=== PATIENT | female | born 1960 | race African-American/Black ===

== ENCOUNTER 2020-05-07 11:39 | Inpatient (IN) | payer OTHER ==
[2020-05-02 13:50] VITALS: BMI 27.5
[2020-05-07] MEDS ORDERED: BUPIVACAINE LIPOSOME/PF (EXPAREL) 266 MG/20 ML VIAL ONE ×2 (12:10→12:13)
[2020-05-07] MEDS ORDERED: SODIUM CHLORIDE 0.9% P/F 10 ML VIAL IJ ONE (12:10)
[2020-05-07] MEDS ORDERED: MIDAZOLAM HCL 2 MG/2 ML SINGLE DOSE VIAL ONE (12:10)
[2020-05-07] MEDS ORDERED: VANCOMYCIN 1,000 MG VIAL (RESTRICTED TO ID ONLY) ONE (13:04)
[2020-05-07] MEDS ORDERED: BUPIVACAINE HCL/PF 0.5% (5MG/ML) 10 ML VIAL ONE (13:04)
[2020-05-07] MEDS ORDERED: TRANEXAMIC ACID 1000 MG/10 ML VIAL ONE ×2 (13:33→15:14)
[2020-05-07] MEDS ORDERED: PROPOFOL 20 ML ONE ×3 (13:39→15:14)
[2020-05-07] MEDS ORDERED: PROMETHAZINE HCL 25 MG/1 ML VIAL IVPUSH PRN (15:04)
[2020-05-07] MEDS ORDERED: LACTATED RINGERS SOLUTION 1,000 ML IV SCH ×2 (15:15→16:30)
[2020-05-07] MEDS ORDERED: BENZOIN/ALOE VERA/STORAX/TOLU 58 ML BOTTLE ONE (16:20)
[2020-05-07] MEDS ORDERED: MAGNESIUM HYDROX 2400MG/30ML ORAL SUSPENSION 30 ML CUP PO PRN (16:23)
[2020-05-07] MEDS ORDERED: MAG HYDROX/AL HYDROX/SIMETH 30 ML UNIT-DOSE CUP PO PRN (16:23)
[2020-05-07] MEDS: ACETAMINOPHEN 325 MG TABLET (FP) PO SCH (21:03)
[2020-05-07] MEDS: SENNOSIDES/DOCUSATE COMBO (SENNA PLUS) TABLET (UD) PO SCH (21:03)
[2020-05-07] MEDS: ceFAZolin 2 GRAM PREMIX BAG IVPB SCH (21:04)
[2020-05-07] MEDS: ASPIRIN 81 MG CHEWABLE TABLETS PO SCH (21:04)
[2020-05-07] MEDS: oxyCODONE HCL 5 MG TABLET PO PRN (21:05)
[2020-05-07] MEDS ORDERED: HYDROmorphone HCl 2 MG/ML VIAL IVPB PRN (21:58)
[2020-05-07] MEDS ORDERED: KETOROLAC TROMETHAMINE 30 MG/1 ML VIAL IVPUSH ONE (22:00)
[2020-05-07] MEDS ORDERED: oxyCODONE HCL 10 MG SUSTAINED ACTING TABLET PO SCH (22:00)
[2020-05-07] MEDS ORDERED: CEFAZOLIN 1 GM in DEXTROSE 5%-WATER - 50 ML IVPB SCH (23:00)
[2020-05-07] MEDS: ONDANSETRON 4 MG/2 ML VIAL IVPUSH PRN (23:26)
[2020-05-08] MEDS: oxyCODONE HCL 5 MG TABLET PO PRN ×2 (01:26→15:34)
[2020-05-08] MEDS: ACETAMINOPHEN 325 MG TABLET (FP) PO SCH ×5 (03:14→22:07)
[2020-05-08] MEDS: ceFAZolin 2 GRAM PREMIX BAG IVPB SCH ×2 (03:15→10:00)
[2020-05-08] MEDS: ONDANSETRON 4 MG/2 ML VIAL IVPUSH PRN (06:18)
[2020-05-08 08:12] LABS: HEMATOCRIT 38.7 % (32.4-45.2); HEMOGLOBIN 12.8 GM/dl (10.7-15.3); MCH 29.3 pg (25.7-33.7); MCHC 33.1 g/dl (32.0-36.0); MEAN CELL VOLUME 88.5 fl (80-96); MEAN PLT VOLUME 12.1 fl (7.5-11.1); PLATELET COUNT 179 K/MM3 (134-434); RBC 4.37 M/mm3 (3.60-5.2); RDW 13.5 % (11.6-15.6); WHITE BLOOD COUNT 9.5 K/mm3 (4.0-10.8)
[2020-05-08 08:28] LABS: CALCIUM 8.7 mg/dl (8.5-10); CREATININE 0.8 mg/dl (0.55-1.3); MAGNESIUM 1.8 mg/dL (1.8-2.4); POTASSIUM 4.3 mmol/L (3.5-5.1)
[2020-05-08] MEDS: ASPIRIN 81 MG CHEWABLE TABLETS PO SCH ×2 (09:19→22:06)
[2020-05-08] MEDS: MULTIVITAMINS (DAILY MVI) TABLET (FP) PO SCH (09:19)
[2020-05-08] MEDS: PANTOPRAZOLE 40 MG TABLET PO SCH (09:20)
[2020-05-08] MEDS: OXYBUTYNIN CHLORIDE 5 MG TABLET PO SCH (09:20)
[2020-05-08] MEDS: SENNOSIDES/DOCUSATE COMBO (SENNA PLUS) TABLET (UD) PO SCH ×2 (09:20→22:06)
[2020-05-08] MEDS ORDERED: ASCORBIC ACID 1,000 MG TABLET PO SCH (10:00)
[2020-05-08] MEDS ORDERED: BIOTIN 2500 MCG PO SCH (10:00)
[2020-05-09] MEDS: oxyCODONE HCL 5 MG TABLET PO PRN ×6 (01:13→16:09)
[2020-05-09] MEDS: ACETAMINOPHEN 325 MG TABLET (FP) PO SCH ×3 (03:15→15:09)
[2020-05-09 08:04] LABS: HEMOGLOBIN 10.8 GM/dl (10.7-15.3); MCH 29.8 pg (25.7-33.7); MCHC 33.7 g/dl (32.0-36.0); MEAN CELL VOLUME 88.4 fl (80-96); MEAN PLT VOLUME 11.7 fl (7.5-11.1); PLATELET COUNT 163 K/MM3 (134-434); RBC 3.62 M/mm3 (3.60-5.2); RDW 13.4 % (11.6-15.6); WHITE BLOOD COUNT 10.5 K/mm3 (4.0-10.8)
[2020-05-09] MEDS ORDERED: ASCORBIC ACID 500 MG TABLET (FP) PO SCH (10:00)
[2020-05-09] MEDS: ONDANSETRON *ODT* 4 MG TABLET SL PRN ×2 (10:02→16:08)
[2020-05-09] MEDS: SENNOSIDES/DOCUSATE COMBO (SENNA PLUS) TABLET (UD) PO SCH (10:19)
[2020-05-09] MEDS: OXYBUTYNIN CHLORIDE 5 MG TABLET PO SCH (10:19)
[2020-05-09] MEDS: ASPIRIN 81 MG CHEWABLE TABLETS PO SCH (10:19)
[2020-05-09] MEDS: PANTOPRAZOLE 40 MG TABLET PO SCH (10:19)
[2020-05-09] MEDS: MULTIVITAMINS (DAILY MVI) TABLET (FP) PO SCH (10:20)
[2020-05-09 10:54] VITALS: TEMP 99.1
[2020-05-09 15:03] VITALS: BP 96/56; PULSE 58
== END 2020-05-09 18:45 | disposition home or self-care (01) | DRG 470 ==
LOC: FM/S 11:39
PROVIDERS: ADMIT Orthopaedic Surgery Orthopaedic Surgery of the Spine; ATTEND Nurse Practitioner Acute Care
PROC: 0SRC0J9 Replacement of Right Knee Joint with Synthetic Substitute, Cemented, Open Approach (ICD-10-PCS; principal; 2020-05-07 14:00)
DX: M17.11 Unilateral primary osteoarthritis, right knee (principal); N32.81 Overactive bladder
CPT/HCPCS: 36415; 73560-TC-RT-FY; 80048; 83735; 85027; 88304-TC; 88311-TC; 93005; 94760; 97010-GP; 97116-GP; 97162-GP; Q0162

== ENCOUNTER 2022-06-03 08:08 | Day surgery (SDC) | payer BC, OTHER ==
[2022-06-01 09:36] VITALS: BMI 29.4
[2022-06-03] MEDS ORDERED: BUPIVACAINE LIPOSOME/PF (EXPAREL) 266 MG/20 ML VIAL ONE ×2 (09:40→09:51)
[2022-06-03] MEDS ORDERED: BUPIVACAINE HCL/PF 0.5% (5 MG/ML) 30 ML VIAL IJ ONE (09:40)
[2022-06-03] MEDS ORDERED: MIDAZOLAM HCL 2 MG/2 ML SINGLE DOSE VIAL ONE ×2 (09:41→10:53)
[2022-06-03] MEDS ORDERED: BUPIVACAINE HCL 50 ML ONE (10:07)
[2022-06-03] MEDS ORDERED: PROPOFOL 20 ML ONE ×3 (10:08)
[2022-06-03] MEDS ORDERED: VANCOMYCIN 1,000 MG VIAL (RESTRICTED TO ID ONLY) ONE (11:15)
[2022-06-03] MEDS ORDERED: ceFAZolin SODIUM 1 GM VIAL ONE ×3 (11:15→19:26)
[2022-06-03] MEDS ORDERED: ACETAMINOPHEN 325 MG TABLET (FP) PO ONE (12:52)
[2022-06-03] MEDS ORDERED: MAG HYDROX/AL HYDROX/SIMETH 30 ML UNIT-DOSE CUP PO PRN (14:21)
[2022-06-03] MEDS ORDERED: MAGNESIUM HYDROX 2400MG/30ML ORAL SUSPENSION 30 ML CUP PO PRN (14:21)
[2022-06-03] MEDS ORDERED: LACTATED RINGERS SOLUTION 1,000 ML IV SCH (14:30)
[2022-06-03] MEDS ORDERED: ACETAMINOPHEN 1000 MG/100 ML BAG IVPB ONE (14:38)
[2022-06-03] MEDS ORDERED: oxyCODONE HCL 5 MG TABLET PO PRN (14:38)
[2022-06-03] MEDS: ONDANSETRON 4 MG/2 ML VIAL IVPUSH PRN ×2 (15:00→19:44)
[2022-06-03] MEDS: KETOROLAC TROMETHAMINE 30 MG/1 ML VIAL IVPUSH SCH ×2 (15:45→19:44)
[2022-06-03] MEDS ORDERED: DEXTROSE 5%-WATER - 50 ML IVPB ONE (19:26)
[2022-06-03] MEDS: CEFAZOLIN 2 GM in DEXTROSE 5%-WATER - 50 ML IVPB SCH (19:45)
[2022-06-03] MEDS: oxyCODONE HCL 5 MG TABLET PO PRN ×2 (20:27→21:06)
[2022-06-03] MEDS: ACETAMINOPHEN 500 MG TABLET (FP) PO SCH (21:00)
[2022-06-03] MEDS: CELECOXIB 200 MG CAPSULE PO SCH (21:06)
[2022-06-03] MEDS: ASPIRIN COATED 81 MG TABLET.EC PO SCH (21:06)
[2022-06-03] MEDS: oxyCODONE HCL 10 MG SUSTAINED ACTING TABLET PO SCH (21:07)
[2022-06-03] MEDS: SENNOSIDES/DOCUSATE COMBO (SENNA PLUS) TABLET (UD) PO SCH (21:08)
[2022-06-04] MEDS ORDERED: ceFAZolin SODIUM 1 GM VIAL ONE ×2 (00:03→04:22)
[2022-06-04] MEDS ORDERED: DEXTROSE 5%-WATER - 50 ML IVPB ONE ×2 (00:04→04:22)
[2022-06-04] MEDS: CEFAZOLIN 2 GM in DEXTROSE 5%-WATER - 50 ML IVPB SCH ×2 (02:00→06:05)
[2022-06-04] MEDS: ACETAMINOPHEN 500 MG TABLET (FP) PO SCH ×4 (04:00→21:55)
[2022-06-04 08:23] LABS: HEMATOCRIT 36.8 % (32.4-45.2); HEMOGLOBIN 12.6 G/dL (10.7-15.3); MCH 31.3 pg (25.7-33.7); MCHC 34.3 g/dl (32.0-36.0); MEAN CELL VOLUME 91.1 fl (80-96); MEAN PLT VOLUME 10.8 fl (7.5-11.1); PLATELET COUNT 157.8 10^3/uL (134-434); RBC 4.04 10^6/uL (3.60-5.2); RDW 13.8 % (11.6-15.6); WHITE BLOOD COUNT 9.6 10^3/uL (4.0-10.8)
[2022-06-04 08:25] LABS: CALCIUM 8.8 mg/dl (8.5-10)
[2022-06-04] MEDS: OXYBUTYNIN CHLORIDE 5 MG TABLET PO SCH (09:23)
[2022-06-04] MEDS: SENNOSIDES/DOCUSATE COMBO (SENNA PLUS) TABLET (UD) PO SCH ×2 (09:23→21:55)
[2022-06-04] MEDS: ASPIRIN COATED 81 MG TABLET.EC PO SCH ×2 (09:23→21:55)
[2022-06-04] MEDS: CELECOXIB 200 MG CAPSULE PO SCH ×2 (09:23→21:55)
[2022-06-04] MEDS: oxyCODONE HCL 10 MG SUSTAINED ACTING TABLET PO SCH (09:24)
[2022-06-04] MEDS: ONDANSETRON 4 MG/2 ML VIAL IVPUSH PRN (09:24)
[2022-06-04] MEDS: PANTOPRAZOLE 40 MG TABLET PO SCH (09:24)
[2022-06-04] MEDS ORDERED: PANTOPRAZOLE 40 MG TABLET PO SCH (10:00)
[2022-06-05] MEDS: ACETAMINOPHEN 500 MG TABLET (FP) PO SCH ×2 (06:33→10:05)
[2022-06-05] MEDS: oxyCODONE HCL 10 MG SUSTAINED ACTING TABLET PO SCH ×2 (07:47→10:06)
[2022-06-05 08:16] LABS: HEMATOCRIT 33.5 % (32.4-45.2); HEMOGLOBIN 11.4 G/dL (10.7-15.3); MEAN CELL VOLUME 91.3 fl (80-96); MEAN PLT VOLUME 11.1 fl (7.5-11.1); PLATELET COUNT 124.8 10^3/uL (134-434); RBC 3.67 10^6/uL (3.60-5.2); RDW 14.3 % (11.6-15.6); WHITE BLOOD COUNT 9.9 10^3/uL (4.0-10.8)
[2022-06-05] MEDS: CELECOXIB 200 MG CAPSULE PO SCH (10:04)
[2022-06-05] MEDS: PANTOPRAZOLE 40 MG TABLET PO SCH (10:04)
[2022-06-05] MEDS: OXYBUTYNIN CHLORIDE 5 MG TABLET PO SCH (10:04)
[2022-06-05] MEDS: SENNOSIDES/DOCUSATE COMBO (SENNA PLUS) TABLET (UD) PO SCH (10:05)
[2022-06-05] MEDS: ASPIRIN COATED 81 MG TABLET.EC PO SCH (10:05)
[2022-06-05 13:13] VITALS: RESP 20
[2022-06-05 13:59] VITALS: BP 99/50; PULSE 52; TEMP 98
== END 2022-06-05 15:45 | disposition home or self-care (01) ==
LOC: FASUSAT 08:08 → FASU 08:08 → FM/S 16:18 → FASUSAT 06-05 15:45
PROVIDERS: ATTEND Orthopaedic Surgery Adult Reconstructive Orthopaedic Surgery
PROC: 0SRD0J9 Replacement of Left Knee Joint with Synthetic Substitute, Cemented, Open Approach (ICD-10-PCS; principal; 2022-06-03 11:59)
DX: M17.12 Unilateral primary osteoarthritis, left knee (principal)
CPT/HCPCS: 27447; C1776; 36415; 73560-TC-LT-FY; 80048; 85027; 88305-TC; 88311-TC; 94760; 97116-GP; 97161-GP

== ENCOUNTER 2022-06-24 15:19 | Emergency (ER) | payer BC, OTHER ==
[2022-06-24 15:31] VITALS: BP 131/79; PULSE 68; RESP 18; TEMP 98.5; BMI 29.4
[2022-06-24] MEDS ORDERED: MECLIZINE HCL 25 MG TABLET (FP) PO ONE (15:47)
[2022-06-24] MEDS ORDERED: MECLIZINE HCL 25 MG TABLET (FP) ONE (15:52)
== END 2022-06-24 16:40 | disposition home or self-care (01) ==
LOC: FER 15:19
DX: H83.09 Labyrinthitis, unspecified ear (principal)
CPT/HCPCS: 99283-25